=== PATIENT | male | born 1995 | race Caucasian/White ===

== ENCOUNTER 2017-02-12 09:32 | Day surgery (SDC) | payer OTHER ==
[2017-02-11 14:44] VITALS: BMI 23.1
[~2017-02-12] VITALS: Ht 168.9 cm; Wt 65.0 kg
[2017-02-12] VITALS (12 sets, daily range): BP systolic 83–131; BP diastolic 39–76; PULSE 50–80; RESP 13–21; Ht 168.9 cm; Wt 65.0 kg
[~2017-02-12 09:32] MED LIST: CEFAZOLIN 2 GM/50 ML (PMX) 50 ML IVPB SCH; SOD CHLORIDE 0.9% 1,000 ML IV SCH
[2017-02-12] MEDS ORDERED: IBUP400T22 PO (10:15)
[2017-02-12] MEDS ORDERED: OXYCODONE/ACETAMINOPHEN (5/325) TAB PO PRN (12:30)
[2017-02-12] MEDS ORDERED: PROCHLORPERAZINE 10 MG INJ IV PRN (12:30)
[2017-02-12] MEDS ORDERED: DIPHENHYDRAMINE 50 MG INJ IV PRN (12:30)
[2017-02-12] MEDS ORDERED: MEPERIDINE 25 MG INJ IV PRN (12:30)
[2017-02-12] MEDS ORDERED: FENTAnyl 50 MCG/ML VIAL IV PRN ×3 (12:30)
[2017-02-12] MEDS ORDERED: ONDANSETRON 4 MG INJ IV PRN (12:30)
[2017-02-12] MEDS ORDERED: HYDROmorphONE (0.2 MG/ML) 10ML SYG IV PRN ×3 (12:30)
[2017-02-12] MEDS ORDERED: POLYMYXIN/BACITRACIN 1L IRRIG ONE (12:43)
[2017-02-12] MEDS ORDERED: BUPIVACAINE 0.25% (MPF) 30 ML INJ ONE (12:43)
[2017-02-12] MEDS ORDERED: MIDAZOLAM 1 MG/ML 2 ML INJ ONE (12:50)
[2017-02-12] MEDS ORDERED: FENTAnyl 50 MCG/ML VIAL ONE (12:50)
[2017-02-12] MEDS ORDERED: PROPOFOL 40 ML ONE (13:09)
[2017-02-12] MEDS ORDERED: SUCCINYLCHOLINE CHLORIDE 100 MG/5 ML SYG IV ONE (13:09)
[2017-02-12] MEDS ORDERED: ROCURONIUM 50 MG INJ ONE (13:09)
[2017-02-12] MEDS ORDERED: LIDOCAINE 2% (SDV) 5 ML INJ ONE (13:09)
[2017-02-12] MEDS ORDERED: POLYMYXIN/BACITRACIN 1L IRRIG IRR ONE (13:17)
[2017-02-12] MEDS ORDERED: BUPIVACAINE 0.25% (MPF) 30 ML INJ INJ ONE (13:17)
[2017-02-12] MEDS ORDERED: DEXAMETHASONE 4 MG/ML 1 ML INJ ONE (13:20)
[2017-02-12] MEDS ORDERED: ONDANSETRON 4 MG INJ ONE (13:20)
[2017-02-12] MEDS ORDERED: FAMOTIDINE 20 MG INJ ONE (13:20)
[2017-02-12] MEDS ORDERED: GLYCOPYRROLATE 0.4 MG INJ ONE (13:32)
[2017-02-12] MEDS ORDERED: NEOSTIGMINE 3 MG/3 ML SYRINGE ONE (13:32)
[2017-02-12] MEDS ORDERED: KETOROLAC 30 MG INJ ONE (13:37)
[2017-02-12] MEDS ORDERED: SUGAMMADEX SODIUM 200 MG/2 ML VIAL IV ONE (13:46)
[2017-02-12] MEDS ORDERED: HYDROCODONE/APAP (5/325) TAB PO ONE (14:00)
--- NOTE | 2017-02-12 14:05 | OPR ---
Date/Time of Note Date/Time of Note DATE: 02/12/17 TIME: 14:01 Operative Report Procedure Date: Feb 12, 2017 Preoperative Diagnosis right inguinal hernia Postoperative Diagnosis incarcerated right inguinal hernia Operation/Procedure Performed 1. open right incarcerated inguinal hernia repair with ultrapro hernia system mesh 2. therapeutic injection of subcutaneous local anesthesia Surgeon see signature line Baker Apprentice none Anesthesia Type: general Estimated Blood Loss: 0 - 10 ml's Transfusion none Specimen none Grafts/Implants none Complications none Pt Condition Post Procedure: stable Indications This is a 21-year-old male with an incarcerated right inguinal hernia. He requests surgical repair. Risks alternatives benefits and percent were discussed the patient. Patient expresses understanding and consents to the operation. Procedure Description Patient is taken to the OR and prepped and draped in usual sterile fashion. Surgical timeout was performed. IV antibiotics given. Right inguinal oblique incision is made with a 10 blade. Dissection cautery was carried onto the external oblique fascia. This is open with a 15 blade. This incision is extended medially inferiorly and lateral superiorly with Metzenbaum scissors. Cord structure identified and encircled with a Chamberlain drain. Indirect incarcerated hernia is identified and reduced manually. This area is supported with the distal portion of the ultrapure hernia system mesh. This is secured in place with a running 0 Prolene from the pubic tubercle along the shelving edge of the inguinal ligament and superiorly to intra-oblique with interrupted 3 -0 Vicryl. Onlay mesh is secured in a similar fashion with a running 0 Prolene from the pubic tubercle along the shelving edge of the inguinal ligament. Structure creating reapproximated around the cord structures with interrupted 0 Prolene to re-create the inguinal ring. Onlay mesh is secured to intra-oblique with interrupted 3-0 Vicryl. The external oblique fascia was closed with a running 3-0 Vicryl. David's fascia was closed with interrupted 3-0 Vicryl. Skin was closed using skin sajan. Therapeutic subcutaneous local anesthesia was injected throughout the incision site. Laura YUAN Feb 12, 2017 14:05
== END 2017-02-12 16:55 | disposition home or self-care (01) ==
LOC: SDS 09:32
PROVIDERS: ATTEND Surgery
DX: K40.30 Unilateral inguinal hernia, with obstruction, without gangrene, not specified as recurrent (principal)
CPT/HCPCS: 49507; C1781; J1885; J2250; J2710; J3010; Z7512; Z7610; J1100; J2405